=== PATIENT | male | born 1990 | race Caucasian/White ===

== ENCOUNTER 2018-02-28 12:45 | Outpatient (REF) | payer MEDICAID, SELFPAY ==
[2018-02-28 22:58] LABS: *AMPHETAMINES SCREEN URINE Negative (Negative); *BARBITURATES SCREEN URINE Negative (Negative); *BENZODIAZEPINES SCREEN URINE Negative (Negative); Cannabinoids THC Negative (Negative); Cocaine Screen,Urine Negative (Negative); METHADONE URINE SCREEN Negative (Negative); OPIATES URINE SCREEN Negative (Negative)
[2018-02-28 22:59] LABS: Tricyclic Antidepressants Negative (Negative)
[2018-03-07 20:55] LABS: Methylphenidate 171 ng/mL; Ritalinic Acid 4821 ng/mL
== END 2018-02-28 13:05 ==
LOC: NCHCN 12:45
PROVIDERS: PCP Family Medicine; Visit Provider Family Medicine
DX: F90.9 Attention-deficit hyperactivity disorder, unspecified type (principal); Z79.899 Other long term (current) drug therapy; Z51.81 Encounter for therapeutic drug level monitoring
CPT/HCPCS: 80307; 80360

== ENCOUNTER 2022-12-17 16:14 | Outpatient (REF) | payer MEDICAID, SELFPAY ==
[2022-12-17 20:13] LABS: Abs Immature Grans 0.04 10^3/uL (0.0-0.06); Absolute Basophil Count 0.05 10^3/uL (0.0-0.2); Absolute Eosinophil Count 0.21 10^3/uL (0.0-0.7); Absolute Monocyte Count 0.45 10^3/uL (0.1-0.8); Absolute Neutrophil Count 5.94 10^3/uL (1.2-6.7); Basophils % 0.6; Eosinophils % 2.4; HGB 14.7 g/dL (13.5-17.5); Immature Grans % 0.5; MCH 30.3 pg (27.0-33.0); MCHC 33.4 % (32.0-36.0); MCV 91 fL (80-95); MPV 11.8 fL (8.0-11.0); Monocytes % 5.2; Neutrophils % 68.3; Platelet Count 236 10^3/uL (130-400); RBC 4.85 10^6/uL (4.36-5.78); RDW 12.9 % (11.8-14.1); RDW-SD 43.1 fL; WBC 8.69 10^3/uL (4.4-10.8)
[2022-12-17 22:29] LABS: ALT 35 U/L (16-63); AST 21 U/L (15-37); Alkaline Phosphatase 77 U/L (46-116); Anion Gap 9.4 mmol/L (3-11); BUN 15 mg/dL (7-18); Bilirubin, Total 0.2 mg/dL (0.2-1.0); CO2 26.6 mmol/L (21.0-32.0); CREATININE 1.1 mg/dL (0.70-1.30); Calcium 9.3 mg/dL (8.5-10.1); Chloride 100 mmol/L (98-107); Glucose 103 mg/dL (74-106); Lipase 24 U/L (16-77); Potassium 4.3 mmol/L (3.5-5.1); Sodium 136 mmol/L (136-145); TSH (W/Ref FT4) 1.15 uIU/mL (0.36-3.74); Total Protein 7.1 g/dL (6.4-8.2)
== END 2022-12-17 16:15 | disposition home or self-care (01) ==
LOC: NCHCN 16:14
PROVIDERS: PCP Family Medicine; Visit Provider Family Medicine
DX: Z00.00 Encounter for general adult medical examination without abnormal findings (principal)
CPT/HCPCS: 80053; 83690; 84443; 85025

== ENCOUNTER 2022-12-29 16:04 | Outpatient (REF) | payer MEDICAID, SELFPAY ==
--- OUTSIDE RECORDS SUMMARY | 2022-12-29 16:06 | XMS_ITS | CCD ---
Author Name Unknown Address [address] [place] [address] [phone] Organization Unknown Address [address] [place] [address] [phone] Care Team Providers Care Education Administrator Name Role Phone LOLI HARDY Attending Physician [phone] Vital Signs Unknown or Not Available. Allergies Allergy Code Allergy Type Reaction Status No Known Allergies {Clinical monitoring unavailable} 0 Drug allergy Active Procedures Unknown or Not Available. History of Immunizations Unknown or Not Available. Problems Unknown or Not Available. Results Unknown or Not Available. Active Medications Unknown or Not Available. Medications Administered During Visit Unknown or Not Available. Encounters Encounter Diagnosis Diagnosis Code Start Date Tachycardia, unspecified R000 [id number] Social History Smoking Status Code Start Date End Date Current every day smoker [id number] Patient Decision Aids Unknown or Not Available. Discharge Instructions You were admitted to [facility] on 04/01/2021 16:31 with a principal diagnosis of Tachycardia, unspecified You were discharged from [facility] on 04/01/2021 16:31 Should you have any questions prior to discharge, please contact a member of your healthcare team. If you have left the hospital and have any questions, please contact your primary care physician. Chief Complaint and Reason For Visit Unknown or Not Available. Function Status Unknown or Not Available. Plan of Care Unknown or Not Available. Referral/Transition of Care Unknown or Not Available.
[2023-01-01 23:06] LABS: Methylphenidate 1986 ng/mL (Cutoff: 10); Ritalinic Acid 59203 ng/mL (Cutoff: 50)
== END 2022-12-29 16:05 | disposition home or self-care (01) ==
LOC: NCHCN 16:04
PROVIDERS: PCP Family Medicine; Visit Provider Family Medicine
DX: F90.9 Attention-deficit hyperactivity disorder, unspecified type (principal); Z79.899 Other long term (current) drug therapy; Z51.81 Encounter for therapeutic drug level monitoring
CPT/HCPCS: 80360

== ENCOUNTER 2023-01-26 18:26 | Outpatient (REF) | payer MEDICAID, SELFPAY ==
--- OUTSIDE RECORDS SUMMARY | 2023-01-26 18:28 | XMS_ITS | CCD ---
Author Name Unknown Address [address] [place] [address] [phone] Organization Unknown Address [address] [place] [address] [phone] Care Team Providers Care Improvement Specialist Name Role Phone LOLI HARDY Attending Physician [phone] Vital Signs Unknown or Not Available. Allergies [...] Date End Date Current every day smoker [id number] Patient Decision Aids Unknown or Not Available. Discharge Instructions You were admitted to [facility] on 04/01/2021 16:31 with a principal diagnosis of Tachycardia, unspecified You were discharged from [facility] on 04/01/2021 16:31 Should you have [...]
[2023-01-29 22:22] LABS: Methylphenidate 4225 ng/mL (Cutoff: 10); Ritalinic Acid 3038 ng/mL (Cutoff: 50)
== END 2023-01-26 18:27 | disposition home or self-care (01) ==
LOC: NCHCN 18:26
PROVIDERS: PCP Family Medicine; Visit Provider Family Medicine
DX: Z51.81 Encounter for therapeutic drug level monitoring (principal)
CPT/HCPCS: 80360

== ENCOUNTER 2023-05-05 13:34 | Outpatient (REF) | payer MEDICAID, SELFPAY ==
[2023-05-08 09:33] LABS: Methylphenidate 43 ng/mL (Cutoff: 10); Ritalinic Acid 2152 ng/mL (Cutoff: 50)
== END 2023-05-05 13:35 | disposition home or self-care (01) ==
LOC: NCHCN 13:34
PROVIDERS: PCP Family Medicine; Referring Provider Family Medicine; Visit Provider Family Medicine
DX: F90.9 Attention-deficit hyperactivity disorder, unspecified type (principal)
CPT/HCPCS: 80360

== ENCOUNTER 2024-06-01 22:41 | Outpatient (REF) | payer MEDICAID, SELFPAY ==
[2024-06-06 05:57] LABS: Methylphenidate Negative ng/mL (Cutoff: 10); Ritalinic Acid 1594 ng/mL (Cutoff: 50)
== END 2024-06-01 22:42 | disposition home or self-care (01) ==
LOC: NCHCN 22:41
PROVIDERS: PCP Family Medicine; Visit Provider Family Medicine
DX: F90.9 Attention-deficit hyperactivity disorder, unspecified type (principal); Z79.899 Other long term (current) drug therapy
CPT/HCPCS: 80360